=== PATIENT | female | born 1995 | race Caucasian/White ===

== ENCOUNTER 2019-02-09 09:32 | Day surgery (SDC) | payer OTHER | END 2019-02-09 17:10 | disposition home or self-care (01) | LOC: CIR.AMB 09:32 | DX: O02.1 Missed abortion (principal); Z3A.01 Less than 8 weeks gestation of pregnancy ==

== ENCOUNTER → 2020-04-06 | Outpatient (CLI) | payer OTHER | END | disposition home or self-care (01) | LOC: PRENATAL 13:58 | PROVIDERS: ATTEND Obstetrics & Gynecology Maternal & Fetal Medicine | DX: O30.001 Twin pregnancy, unspecified number of placenta and unspecified number of amniotic sacs, first trimester (principal); O36.80X2 Pregnancy with inconclusive fetal viability, fetus 2; Z36.89 Encounter for other specified antenatal screening; Z3A.13 13 weeks gestation of pregnancy ==

== ENCOUNTER 2020-05-22 23:04 | Emergency (ER) | payer OTHER ==
[~2020-05-22] VITALS: Ht 157.5 cm; Wt 56.2 kg
== END 2020-05-23 03:40 | disposition still patient (30) ==
LOC: ER 23:04
DX: O26.852 Spotting complicating pregnancy, second trimester (principal); O30.042 Twin pregnancy, dichorionic/diamniotic, second trimester

== ENCOUNTER 2020-05-23 03:51 | Outpatient (CLI) | payer OTHER | END 2020-05-23 08:40 | disposition HB | LOC: OBS/DEL 03:51 | PROVIDERS: ATTEND Specialist | DX: O26.852 Spotting complicating pregnancy, second trimester (principal); O30.042 Twin pregnancy, dichorionic/diamniotic, second trimester ==

== ENCOUNTER → 2020-05-24 | Outpatient (CLI) | payer OTHER | END | disposition home or self-care (01) | LOC: PRENATAL 14:59 | PROVIDERS: ATTEND Obstetrics & Gynecology Maternal & Fetal Medicine | DX: O26.872 Cervical shortening, second trimester (principal); O30.92 Multiple gestation, unspecified, second trimester; O35.3XX1 Maternal care for (suspected) damage to fetus from viral disease in mother, fetus 1; O98.512 Other viral diseases complicating pregnancy, second trimester; Z36.89 Encounter for other specified antenatal screening; Z3A.20 20 weeks gestation of pregnancy ==

== ENCOUNTER → 2020-06-07 | Outpatient (CLI) | payer OTHER | END | disposition home or self-care (01) | LOC: PRENATAL 09:30 | PROVIDERS: ATTEND Obstetrics & Gynecology Maternal & Fetal Medicine | DX: O26.872 Cervical shortening, second trimester (principal); O30.92 Multiple gestation, unspecified, second trimester; Z36.89 Encounter for other specified antenatal screening; Z3A.22 22 weeks gestation of pregnancy ==

== ENCOUNTER → 2020-07-05 | Outpatient (CLI) | payer OTHER | END | disposition home or self-care (01) | LOC: PRENATAL 10:00 | PROVIDERS: ATTEND Obstetrics & Gynecology Maternal & Fetal Medicine | DX: O26.842 Uterine size-date discrepancy, second trimester (principal); O30.92 Multiple gestation, unspecified, second trimester; Z36.89 Encounter for other specified antenatal screening; Z3A.26 26 weeks gestation of pregnancy ==

== ENCOUNTER → 2020-08-01 | Outpatient (CLI) | payer OTHER | END | disposition home or self-care (01) | LOC: PRENATAL 14:30 | PROVIDERS: ATTEND Obstetrics & Gynecology Maternal & Fetal Medicine | DX: O26.843 Uterine size-date discrepancy, third trimester (principal); O30.93 Multiple gestation, unspecified, third trimester; Z36.89 Encounter for other specified antenatal screening; Z3A.32 32 weeks gestation of pregnancy ==

== ENCOUNTER → 2020-08-23 | Outpatient (CLI) | payer OTHER ==
[~2020-08-23] MED LIST: AMOX1TAB5 PO; DOCUSATE SODIU100 MG PO; IBUPROFEN800 MG PO; OXYC1TAB9 PO; PRENATAL TABLE1 EAC1 PO; PREPLUS CA-FE1 EACH PO; SIMETHICONE125 M1 PO
== END | disposition home or self-care (01) ==
LOC: PRENATAL 13:00
PROVIDERS: ATTEND Obstetrics & Gynecology Maternal & Fetal Medicine
DX: O26.843 Uterine size-date discrepancy, third trimester (principal); O36.8131 Decreased fetal movements, third trimester, fetus 1; O30.93 Multiple gestation, unspecified, third trimester; Z36.89 Encounter for other specified antenatal screening; Z3A.33 33 weeks gestation of pregnancy

== ENCOUNTER 2020-09-08 09:42 | Inpatient (IN) | payer OTHER ==
[~2020-09-08] VITALS: Ht 157.5 cm; Wt 2269.0 kg
[2020-09-08] MEDS ORDERED: PRENATAL TABLE1 EAC1 PO (11:03)
[2020-09-11] MEDS ORDERED: SIMETHICONE125 M1 PO (10:21)
[2020-09-11] MEDS ORDERED: AMOX1TAB5 PO (10:21)
[2020-09-11] MEDS ORDERED: DOCUSATE SODIU100 MG PO (10:21)
[2020-09-11] MEDS ORDERED: IBUPROFEN800 MG PO (10:21)
[2020-09-11] MEDS ORDERED: OXYC1TAB9 PO (10:21)
[2020-09-11] MEDS ORDERED: PREPLUS CA-FE1 EACH PO (10:21)
== END 2020-09-11 16:14 | disposition home or self-care (01) | DRG 786 ==
LOC: OB/GYN 09:42 → LDR 09:42 → O/R 10:58 → OB/GYN 12:31
PROVIDERS: ADMIT Specialist; ATTEND Specialist
PROC: 4A1HXFZ Monitoring of Products of Conception, Cardiac Rhythm, External Approach (ICD-10-PCS; 2020-09-08)
PROC: 10D00Z1 Extraction of Products of Conception, Low, Open Approach (ICD-10-PCS; principal; 2020-09-08 10:15)
DX: O32.8XX1 Maternal care for other malpresentation of fetus, fetus 1 (principal); O60.14X0 Preterm labor third trimester with preterm delivery third trimester, not applicable or unspecified; O14.14 Severe pre-eclampsia complicating childbirth; O30.033 Twin pregnancy, monochorionic/diamniotic, third trimester; Z3A.35 35 weeks gestation of pregnancy; Z37.2 Twins, both liveborn